=== PATIENT | female | born 1960 | race Caucasian/White ===

== ENCOUNTER 2016-11-17 09:00 | Outpatient (RCR) ==
--- NOTE | 2016-11-08 11:30 | RS.OPPTEV2 ---
Date of Note: 11/08/16 Visit #: 1 Date of Evaluation: 11/08/16 Payer Source: Insurance Treatment Diagnosis: Low back pain, right radiculopathy, Deg. of lumbar disc History of Condition/Mechanism of Injury:: Patient reports low back and right LE pain. States she has had progressive pain into the right LE since 2013. Reports no known injury. She had back surgery in 2005 and did very well until pain started to return in 2013. Prior Level of Function.....Patient was independent with: ADL's, Self Care, Caregiving, Ambulation/Mobility, Community Integration/Access Functional Limitations: Sleep, ADL's, Reaching, Pushing, Pulling, Lifting, Carrying, Sitting, Standing, Bending, Squatting, Ambulation, Community Access/ Integration Current Subjective/complaints:: Patient reports low back pain and right LE radiating pain. Reports right leg pain usually goes down to the knee or to the foot. She is not able to find a position to get any relief. States she has a knot on the right side of the low back that is painful. States she had surgery in 2005 and she is having the same symptoms she did prior to that procedure. Reports pain usually increases as the day goes on and with more activity. Right LE may feel weak at times when she has been very active. She reports pain affects her sleep at times. She has not had a recent MRI. States she has difficulty performing ADL's such as house cleaning or cooking. Medical History Surgical History: Lumbar Spine (2005) Smoking Status: Current every day smoker Hx Home Medications: None reported Patient's Goals: Her goal is to get relief of back and right LE pain. Pain Assessment - Pain Description Pain Location: right low back and right LE Current Pain Intensity: 3/10 Worst Pain Intensity: 9-10/10 Functional Outcome Measure Oswestry LBP: 62 - G Codes & Severity Modifier G Codes & Modifier: NA Source of G Code score: NA Observation - Observation Posture: Forward Head, Rounded Shoulders, Scapula Asymmetry (left higher than right), Decreased Lumbar Lordosis Gait - Gait Pattern General Gait Pattern Observation: Antalgic Gait Gait Comments: Patient ambulates without an assistive device with slight decreased stance on the right LE. Gait is cautious, but steady. - ROM Lumbar Flexion: Hand reach to Mid-Shins Sidebending to Left: Reach to Mid-thigh Sidebending to Right: Reach to Mid-thigh Lumbar Spine ROM Limitations: Soft Tissue Tightness Comments: Patient reports increased right low back pain with lumbar extension and sidebend to the left. Bilateral LE AROM is WFL's. - Strength Trunk Rotation: 4 Good Comments: Right hip flexion 4/5, ER and IR 4/5. Quads and HS 4+/5, ankle 4+/5. Left LE 5/5. - Special Tests MANGO Test: Negative Left, Negative Right SLR Test: Negative Left, Positive Right Seated Dural Stretch Test: Negative Left, Positive Right SI Joint Compression: Negative SI Joint Distraction: Negative Palpation Comments:: Patient reports no specific area of tenderness with palpation throughout the low back. Demonstrates moderate muscle guarding along right lumbar paraspinals, minimal muscle guarding at the left lumbar paraspinals. Sensation - Sensation Right Lower Extremity: Intact/Normal Left Lower Extremity: Intact/Normal Additional Comments: Additional Comments: Right LE appears longer in supine. Left HS is tighter than the right. Left SLR to 40 degrees, Right SLR to 50 degrees. Interventions - Exercise/Activities/Manual Therapy Exercises/Activities: NA Manual Therapy: NA HOME EXERCISE PROGRAM: Patient advised to increase her water intake. Also recommended she change positions frequently and try the supine 90/90 position to relieve pressure off the lumbar spine. - Charges Total Direct Minutes: 35 mins Total Treatment Time: 35 mins Procedures billed for this date of service:: EVAL Low Assessment Assessment: Patient presents to therapy with a diagnosis of Degeneration of lumbar or lumbosacral intervertebral disc and lumbar radiculopathy. She reports pain in the right low back and down the right LE to the knee or foot. She demonstrates lumbar ROM limited by pain and reports difficulty performing ADL's due to increased low back and LE pain. She exhibits moderate increased muscle tone in the lumbar region and an imbalance of flexibility in the HS. She will benefit from modalities as indicated, along with stretching and lumbar stability exercises to reduce her pain and prevent a reoccurrence of symptoms. Patient Education: Education of diagnosis, Body/Joint mechanics, Home Exercise Program, Home Safety, Activity Modification, Education of Plan of Care Rehab Potential: Good Short Term Goals Goal #1: SLR equal bilaterally. Goal to be met by: 11/22/16 Goal #2: Right hip strength 4+/5. Goal to be met by: 11/22/16 Goal #3: Muscle tone along lumbar paraspinals decreased to normal. Goal to be met by: 11/22/16 Goal #4: Right LE symptoms localized to the low back. Goal to be met by: 11/22/16 Fpc Goals Goal #1: Pt knows HEP and to cont. exercises to maintain level of function at D/ C. Goal to be met by: 12/18/16 Goal #2: Score on Oswestry LBP scale improved to 32. Goal to be met by: 12/18/16 Goal #3: Patient able to perform ADL's with minimal low back pain. Goal to be met by: 12/18/16 Goal #4: Pt able to sleep 6-8 hours without interruption from back pain. Goal to be met by: 12/18/16 Plan - Treatment to be Provided Procedures: Therapeutic Exercises, Therapeutic Activity, Manual Therapy, Patient Education Modalities: Electrical Stimulation, Ultrasound/Phonophoresis, Cryotherapy, Hot Packs, Mechanical Traction (lumbar) - Treatment Plan Frequency: 3 X week Duration: 4 weeks ORDER # VISITS AND/OR THROUGH DATE: 12/18/16 - Treatment Code (1) Low back pain Qualifiers: Chronicity: unspecified Back pain laterality: right Sciatica presence: unspecified whether sciatica present Qualified Description: Right low back pain, unspecified chronicity, with sciatica presence unspecified Qualifier Code(s): (M54.5) Low back pain (2) Lumbar radiculopathy Comments: M54.16 (3) Degeneration of lumbar or lumbosacral intervertebral disc Comments: M51.37
--- NOTE | 2016-11-10 11:00 | RS.OPPTDN ---
Subjective Date of Note: 11/10/16 Visit #: 2 Date of Evaluation: 11/08/16 Payer Source: Insurance Treatment Diagnosis: Low back pain, right radiculopathy, Deg. of lumbar disc Current Subjective/complaints:: Patient states pain is constant, rating 3-4/10 now, but does increase with certain activities. She says pain will go down the R LE to the foot at times, but primarily stays around the upper thigh and groin. She says she does yoga and feels she is exercising well. Pain Assessment - Pain Description Pain Location: right low back and right LE Current Pain Intensity: 3/10 - Treatment Modality: Ultrasound (to the LB in R sidelying x 20 mins) Parameters/Method Applied: continuous @ 1.5 w/cm2 x 12 mins to R lumbar paraspinals Treatment Area: Patient admits to being more comfortable on the affected side Patient Position: Right Sidelying - Heat/Cryotherapy Treatment: Hot Pack Interventions - Exercise/Activities/Manual Therapy Exercises/Activities: Initiated passive stretching of SKTC, HS, Piriformis, and lower trunk rotation bilaterally x 3 (more emphasis placed on the R). She begins stability exercises of pillow squeeze and isometric hip abd in hooklying. She was given red tband for hooklying hip abd for home. Total minutes of Exercise: 16 Manual Therapy: NA HOME EXERCISE PROGRAM: Patient advised to increase her water intake. Also recommended she change positions frequently and try the supine 90/90 position to relieve pressure off the lumbar spine. - Charges Total Direct Minutes: 28 Total Treatment Time: 48 Procedures billed for this date of service:: hp, u/s, ex Assessment: Patient with mild pain this morning to the R low back extending to the R anterior thigh. She had some cramping to the L HS during pillow squeezes , but was relieved by standing up and taking steps. She prefers to lay on the affected side during modalities. She appeared to cyn stretching well with showing tightness to bilateral HS. Patient Education: Education of diagnosis, Body/Joint mechanics, Home Exercise Program, Home Safety, Activity Modification, Education of Plan of Care Short Term Goals Goal #1: SLR equal bilaterally. Goal to be met by: 11/22/16 Goal #2: Right hip strength 4+/5. Goal to be met by: 11/22/16 Goal #3: Muscle tone along lumbar paraspinals decreased to normal. Goal to be met by: 11/22/16 Goal #4: Right LE symptoms localized to the low back. Goal to be met by: 11/22/16 Master Sonar Technician Goals Goal #1: Pt knows HEP and to cont. exercises to maintain level of function at D/ C. Goal to be met by: 12/18/16 Goal #2: Score on Oswestry LBP scale improved to 32. Goal to be met by: 12/18/16 Goal #3: Patient able to perform ADL's with minimal low back pain. Goal to be met by: 12/18/16 Goal #4: Pt able to sleep 6-8 hours without interruption from back pain. Goal to be met by: 12/18/16 Plan PLAN OF CARE EXPIRES ON:: 12/18/16 ORDER # VISITS AND/OR THROUGH DATE: 12/18/16 PLAN: Progress Exercises
--- NOTE | 2016-11-15 10:37 | RS.OPPTDN ---
Subjective Date of Note: 11/15/16 Visit #: 3 Date of Evaluation: 11/08/16 Payer Source: Insurance Treatment Diagnosis: Low back pain, right radiculopathy, Deg. of lumbar disc Current Subjective/complaints:: Patient says she had some muscle spasms to her back a few hours after last session. Pain Assessment - Pain Description Pain Location: right low back and right LE Current Pain Intensity: increased to the R and ache today related to weather - Treatment Modality: Ultrasound Parameters/Method Applied: continuous @ 1.5 w/cm2 x 12 mins bilateral lumbar paraspinals with focus to the R. Patient Position: Left Sidelying - Heat/Cryotherapy Treatment: Hot Pack (low back and to the R hip in L sidelying) Interventions - Exercise/Activities/Manual Therapy Exercises/Activities: Continued with passive stretching of SKTC, HS, Piriformis , and lower trunk rotation bilaterally x 3 (more emphasis placed on the R). She continues with stability exercises of pillow squeeze and isometric hip abd in hooklying. Total minutes of Exercise: 16 Manual Therapy: NA HOME EXERCISE PROGRAM: Patient advised to increase her water intake. Also recommended she change positions frequently and try the supine 90/90 position to relieve pressure off the lumbar spine. - Charges Total Direct Minutes: 36 Total Treatment Time: 51 Procedures billed for this date of service:: hp, u/s, ex Assessment: Patient cyn all therex well. She has had some tightness and spasms a few hours after her last session, but was encouraged to continue with increased water intake and to use heating pad or hot shower to ease spasms. We may modify treatment if need be to estim if no consistent relief felt. Patient Education: Education of diagnosis, Body/Joint mechanics, Home Exercise Program, Home Safety, Activity Modification, Education of Plan of Care Short Term Goals Goal #1: SLR equal bilaterally. Goal to be met by: 11/22/16 Goal #2: Right hip strength 4+/5. Goal to be met by: 11/22/16 Goal #3: Muscle tone along lumbar paraspinals decreased to normal. Goal to be met by: 11/22/16 Goal #4: Right LE symptoms localized to the low back. Goal to be met by: 11/22/16 Outside Cutter Hand Goals Goal #1: Pt knows HEP and to cont. exercises to maintain level of function at D/ C. Goal to be met by: 12/18/16 Goal #2: Score on Oswestry LBP scale improved to 32. Goal to be met by: 12/18/16 Goal #3: Patient able to perform ADL's with minimal low back pain. Goal to be met by: 12/18/16 Goal #4: Pt able to sleep 6-8 hours without interruption from back pain. Goal to be met by: 12/18/16 Plan PLAN OF CARE EXPIRES ON:: 12/18/16 ORDER # VISITS AND/OR THROUGH DATE: 12/18/16
--- NOTE | 2016-11-17 10:25 | RS.OPPTDN ---
Subjective Date of Note: 11/17/16 Visit #: 4 Date of Evaluation: 11/08/16 Payer Source: Insurance Treatment Diagnosis: Low back pain, right radiculopathy, Deg. of lumbar disc Current Subjective/complaints:: Patient states treatment does not seem to be helping. She says she has constant pain to the R LB and leg, but worsens as the day progresses. She says she has been performing HEP and does yoga as well. Pain Assessment - Pain Description Pain Location: right low back and right LE Current Pain Intensity: increased to the R and ache today related to weather - Treatment Modality: US with ES (Comb.) Parameters/Method Applied: 1.5 w/cm2 and 95 pk volts x 12 mins to bilateral lumbar paraspinals, but focused on the R side. - Heat/Cryotherapy Treatment: Hot Pack (mid to low back in L sidelying x 20 mins) Interventions - Exercise/Activities/Manual Therapy Exercises/Activities: Trunk stability of: ball squeezes, isometric hip flexion/ abd, SLR, Bridging, alternate LE lift (2 1/2# each) and 3# wand exercise x 15, bilateral LE lift for lower ab crunch. Continued with patient education of modalitiy change and nutrition. Total minutes of Exercise: 16 Manual Therapy: NA HOME EXERCISE PROGRAM: Patient advised to increase her water intake. Also recommended she change positions frequently and try the supine 90/90 position to relieve pressure off the lumbar spine. - Charges Total Direct Minutes: 28 Total Treatment Time: 48 Procedures billed for this date of service:: hp, u/s combo, ex Assessment: Patient not verbalizing any improvement at this point, so added estim to u/s today. She appears to cyn trunk stability quite well and is performing HEP. Per her insurance allowance, she only has 3 more treatments. Patient Education: Education of diagnosis, Body/Joint mechanics, Home Exercise Program, Home Safety, Activity Modification, Education of Plan of Care Patient demonstrates compliance with HEP?: Yes Short Term Goals Goal #1: SLR equal bilaterally. Goal to be met by: 11/22/16 Goal #2: Right hip strength 4+/5. Goal to be met by: 11/22/16 Goal #3: Muscle tone along lumbar paraspinals decreased to normal. Goal to be met by: 11/22/16 Goal #4: Right LE symptoms localized to the low back. Goal to be met by: 11/22/16 Safety Coordinator Goals Goal #1: Pt knows HEP and to cont. exercises to maintain level of function at D/ C. Goal to be met by: 12/18/16 Goal #2: Score on Oswestry LBP scale improved to 32. Goal to be met by: 12/18/16 Goal #3: Patient able to perform ADL's with minimal low back pain. Goal to be met by: 12/18/16 Goal #4: Pt able to sleep 6-8 hours without interruption from back pain. Goal to be met by: 12/18/16 Plan PLAN OF CARE EXPIRES ON:: 12/18/16 ORDER # VISITS AND/OR THROUGH DATE: 12/18/16 PLAN: Continue Plan of Care (continue with u/s com)
== END 2016-11-18 ==
PROVIDERS: ATTEND Neurological Surgery
DX: M51.37 Other intervertebral disc degeneration, lumbosacral region (principal); M54.16 Radiculopathy, lumbar region

== ENCOUNTER 2016-11-29 09:00 | Outpatient (RCR) ==
--- NOTE | 2016-11-22 11:36 | RS.OPPTDN ---
Subjective Date of Note: 11/22/16 Visit #: 5 Date of Evaluation: 11/08/16 Payer Source: Insurance Treatment Diagnosis: Low back pain, right radiculopathy, Deg. of lumbar disc Current Subjective/complaints:: Patient states she did well over the weekend and feels much better. States she went fishing for about 3 hours and may have spent too much time doing this. Pain Assessment - Pain Description Pain Location: right low back and right LE Current Pain Intensity: Decreased to only slight currently - Treatment Modality: US with ES (Comb.) Parameters/Method Applied: continuous 1.5 w/cm2 x 12 mins @ 9 pk volts to R lumbar paraspinals Patient Position: Left Sidelying - Heat/Cryotherapy Treatment: Hot Pack (over the lumbar region and over the R hip in sidelying x 15 mins) Interventions - Exercise/Activities/Manual Therapy Exercises/Activities: Trunk stability of: ball squeezes, isometric hip flexion/ abd, SLR, Bridging, alternate LE lift (2 1/2# each) and 3# wand exercise x 15, bilateral LE lift for lower ab crunch. Continued with patient education of modalitiy change and nutrition. Total minutes of Exercise: 16 Manual Therapy: NA HOME EXERCISE PROGRAM: Patient advised to increase her water intake. Also recommended she change positions frequently and try the supine 90/90 position to relieve pressure off the lumbar spine. - Charges Total Direct Minutes: 28 Total Treatment Time: 43 Procedures billed for this date of service:: hp, u/s with estim, ex Assessment: Patient had increased pain related to fishing over the weekend, but not enough to make her stop. She ambulates with more even WB today coming into the department. Bed mobs performed without grimacing, as well as exercises. She verbalizes improved pain in general since Monday and very little today. Modification of u/s combo seems to be beneficial. Patient Education: Education of diagnosis, Body/Joint mechanics, Home Exercise Program, Home Safety, Activity Modification, Education of Plan of Care Patient demonstrates compliance with HEP?: Yes Short Term Goals Goal #1: SLR equal bilaterally. Goal to be met by: 11/22/16 Progress towards Goal:: Progressing Goal #2: Right hip strength 4+/5. Goal to be met by: 11/22/16 Goal #3: Muscle tone along lumbar paraspinals decreased to normal. Goal to be met by: 11/22/16 Progress towards Goal:: Progressing Goal #4: Right LE symptoms localized to the low back. Goal to be met by: 11/22/16 Hydrological Technical Officer Goals Goal #1: Pt knows HEP and to cont. exercises to maintain level of function at D/ C. Goal to be met by: 12/18/16 Goal #2: Score on Oswestry LBP scale improved to 32. Goal to be met by: 12/18/16 Goal #3: Patient able to perform ADL's with minimal low back pain. Goal to be met by: 12/18/16 Goal #4: Pt able to sleep 6-8 hours without interruption from back pain. Goal to be met by: 12/18/16 Plan PLAN OF CARE EXPIRES ON:: 12/18/16 ORDER # VISITS AND/OR THROUGH DATE: 12/18/16 PLAN: Progress Exercises
--- NOTE | 2016-11-24 11:43 | RS.OPPTDN ---
Subjective Date of Note: 11/24/16 Visit #: 6 Date of Evaluation: 11/08/16 Payer Source: Insurance Treatment Diagnosis: Low back pain, right radiculopathy, Deg. of lumbar disc Current Subjective/complaints:: Katerine says her pain is elevated today. She says she tried to walk about 1/2 mile after her last session, but had to turn around due to pain. She says pain is down the R leg (posteriorally) intermittently. Rates 4/10 without pain meds. She denies using ice or pain meds. Patient does say she sometimes takes a muscle relaxer at bedtime. Pain Assessment - Pain Description Pain Location: right low back and right LE Current Pain Intensity: Decreased to only slight currently - Treatment Modality: US with ES (Comb.) Parameters/Method Applied: continuous @ 1.5 w/cm2 x 12 mins and 9 pk volts R lumbar paraspinals Patient Position: Left Sidelying - Heat/Cryotherapy Treatment: Hot Pack (over the R low back and SI region in sidelying x 15) Interventions - Exercise/Activities/Manual Therapy Exercises/Activities: Trunk stability of: ball squeezes, isometric hip flexion/ abd, SLR, Bridging, alternate LE lift (2 1/2# each) and 3# wand exercise x 15, pelvic tilts 2x10, bilateral LE lift for lower ab crunch. Total minutes of Exercise: 15 Manual Therapy: NA HOME EXERCISE PROGRAM: Patient advised to increase her water intake. Also recommended she change positions frequently and try the supine 90/90 position to relieve pressure off the lumbar spine. - Charges Total Direct Minutes: 27 Total Treatment Time: 42 Procedures billed for this date of service:: hp, u/s combo, ex Assessment: Patient presents with increased pain today. She expresses she continues with R radicular pain intermittently to the posterior upper thigh. She did attempt to walk after her last session, but was not able to walk as long as she liked. Total was ~1 mile with beginning pain at ~1/2 mile. Her back pain is affecting her sleep and ability to grocery shop. She has one available appt remaining. Patient Education: Education of diagnosis, Body/Joint mechanics, Home Exercise Program, Home Safety, Activity Modification, Education of Plan of Care Patient demonstrates compliance with HEP?: Yes (encouraged using ice/heat) Short Term Goals Goal #1: SLR equal bilaterally. Goal to be met by: 11/22/16 Progress towards Goal:: Progressing Goal #2: Right hip strength 4+/5. Goal to be met by: 11/22/16 Goal #3: Muscle tone along lumbar paraspinals decreased to normal. Goal to be met by: 11/22/16 Progress towards Goal:: Progressing Goal #4: Right LE symptoms localized to the low back. Goal to be met by: 11/22/16 Mcc Goals Goal #1: Pt knows HEP and to cont. exercises to maintain level of function at D/ C. Goal to be met by: 12/18/16 Goal #2: Score on Oswestry LBP scale improved to 32. Goal to be met by: 12/18/16 Goal #3: Patient able to perform ADL's with minimal low back pain. Goal to be met by: 12/18/16 Goal #4: Pt able to sleep 6-8 hours without interruption from back pain. Goal to be met by: 12/18/16 Plan PLAN OF CARE EXPIRES ON:: 12/18/16 ORDER # VISITS AND/OR THROUGH DATE: 12/18/16 PLAN: Continue Plan of Care (Patient has one session left with her insurance approval)
--- NOTE | 2016-11-29 10:44 | RS.OPPTDN ---
Subjective Date of Note: 11/29/16 Visit #: 7 Date of Evaluation: 11/08/16 Payer Source: Insurance Treatment Diagnosis: Low back pain, right radiculopathy, Deg. of lumbar disc Current Subjective/complaints:: Patient reports little to no change overall with treatment and exercise. She states she will continue HEP and will be returning to physician. She reports today will be the last appointment she schedules due to limitation of insurance approval at this time. Pain Assessment - Pain Description Pain Location: right low back and right LE Current Pain Intensity: Decreased to only slight currently - Treatment Modality: Electrical Stim Unattended Parameters/Method Applied: [id number] HVGC to 165p.v with 4 large pads, cross current, to the bilateral lumbar paraspinals and S-I joint regions with HP prior to EX. Patient Position: Supine - Heat/Cryotherapy Treatment: Hot Pack ([id number] with Estim ) Interventions - Exercise/Activities/Manual Therapy Exercises/Activities: [id number] Reviewed exercises of trunk stability with ball squeezes, isometric hip flexion/abd. Assisted with bilateral hamstring, piriformis, SKTC, and figure 4 hip stretch. Bridging. Discussed current HEP and patient given copies of new exercise. Total minutes of Exercise: 15mins Manual Therapy: NA HOME EXERCISE PROGRAM: Patient advised to increase her water intake. Also recommended she change positions frequently and try the supine 90/90 position to relieve pressure off the lumbar spine. HS, SKTC, and piriformis stretch. Bridging. - Charges Total Direct Minutes: 15mins Total Treatment Time: 35mins Procedures billed for this date of service:: HP, Estim unattended, EX Assessment: Patient has attended 7 sessions and is reporting little to no improvement in pain. She will continue HEP and return to her physician for a follow-up. Patient Education: Body/Joint mechanics, Home Exercise Program Patient demonstrates compliance with HEP?: Yes Short Term Goals Goal #1: SLR equal bilaterally. Goal to be met by: 11/22/16 Progress towards Goal:: Progressing Goal #2: Right hip strength 4+/5. Goal to be met by: 11/22/16 Progress towards Goal:: Progressing Goal #3: Muscle tone along lumbar paraspinals decreased to normal. Goal to be met by: 11/22/16 Progress towards Goal:: Progressing Goal #4: Right LE symptoms localized to the low back. Goal to be met by: 11/22/16 Fdc Goals Goal #1: Pt knows HEP and to cont. exercises to maintain level of function at D/ C. Goal to be met by: 12/18/16 Progress towards goal: Met Goal #2: Score on Oswestry LBP scale improved to 32. Goal to be met by: 12/18/16 Progress towards goal: No Change Goal #3: Patient able to perform ADL's with minimal low back pain. Goal to be met by: 12/18/16 Progress towards goal: No Change Goal #4: Pt able to sleep 6-8 hours without interruption from back pain. Goal to be met by: 12/18/16 Progress towards goal: No Change Plan PLAN OF CARE EXPIRES ON:: 12/18/16 ORDER # VISITS AND/OR THROUGH DATE: 12/18/16 PLAN: Plan for Discharge (Discharge with HEP.)
--- NOTE | 2016-11-29 10:47 | RS.QUICKDC ---
Discharge from PT Date of Discharge: 11/29/16 Number of Visits: 7 Reason for Discharge: Patient attended 7 sessions as ordered and approved. She reported little to no change in pain or radicular symptoms since starting treatment. She did progress with some treatment goals and was independent with [facility] as instructed. No further treamtent indicated at this time due to limited progress. Discharge at this time with [facility].
== END 2016-12-18 ==
PROVIDERS: ATTEND Neurological Surgery
DX: M51.37 Other intervertebral disc degeneration, lumbosacral region (principal); M54.16 Radiculopathy, lumbar region